=== PATIENT | female | born 2000 | race Caucasian/White ===

== ENCOUNTER 2024-08-26 16:22 | Emergency (ER) | payer MEDICAID ==
[~2024-08-26] VITALS: Ht 157.5 cm; Wt 77.0 kg
[2024-08-26 16:29] VITALS: O2SAT 98
[2024-08-26 17:02] VITALS: BP 99/60; PULSE 82; RESP 14; TEMP 37.16964; O2SAT 98
[2024-08-26] MEDS: LEVETIRACETAM 1000MG PREMIX 100 ML IV ONE (17:08)
[2024-08-26 17:21] LABS: BASOPHILS % 0.7 % (0.0-2.0); EOSINOPHILS % 2.2 % (0.0-5.0); HEMOGLOBIN. 13.6 g/dL (12.0-16.0); LYMPHOCYTES % 23.2 % (20.0-50.0); MEAN CORPUSCULAR HEMOGLOBIN 31.5 pg (28.0-32.0); MEAN CORPUSCULAR HGB CONC 34.7 g/dL (31.0-37.0); MEAN CORPUSCULAR VOLUME 90.6 fL (81.0-99.0); MEAN PLATELET VOLUME 6.5 fl (7.4-10.4); MONOCYTES % 7.1 % (2.0-8.0); NEUTROPHILS % 66.8 % (40.0-76.0); PLATELET 287 x1000/uL (130-400); RED BLOOD CELL COUNT 4.31 mill/uL (4.2-5.4); RED CELL DISTRIBUTION WIDTH 12.8 % (11.6-14.6); WHITE BLOOD COUNT 6.7 x1000/uL (4.5-11.0)
[2024-08-26 17:24] LABS: CHLORIDE 105 mEq/L (98-107); POTASSIUM 3.6 mEq/L (3.5-5.1); SODIUM 139 mEq/L (136-145)
[2024-08-26 17:25] LABS: CARBON DIOXIDE 29 mEq/L (21-32)
[2024-08-26 17:26] LABS: CALCIUM 9.6 mg/dL (8.7-10.4)
[2024-08-26 17:30] LABS: CREATININE 0.6 mg/dL (0.6-1.0); GLUCOSE 90 mg/dL (70-105); UREA NITROGEN BLOOD 8 mg/dL (9-23)
== END 2024-08-26 22:33 | disposition home or self-care (01) ==
LOC: ER 16:22
DX: R53.1 Weakness (principal); G40.909 Epilepsy, unspecified, not intractable, without status epilepticus; Z91.040 Latex allergy status; Z91.148 Patient's other noncompliance with medication regimen for other reason; Z88.0 Allergy status to penicillin
CPT/HCPCS: 99284; 96365; 80048; 85025; 36415; J1953